=== PATIENT | female | born 1935 | race Caucasian/White ===

== ENCOUNTER 2021-02-10 20:06 | Emergency (ER) | payer MEDICARE ==
[~2021-02-10] VITALS: Ht 157.4 cm; Wt 56.7 kg
[~2021-02-10 20:06] MED LIST: ATIVAN0.5 MG PO; DONNATAL1 TAB PO; HYDRODIURIL25 MG PO; LUMIGAN 2.5 ML2.5 M1 OP; PRAVACHOL20 MG PO; RANITIDINE150 MG PO; TYLENOL PM 5001 CA1 PO
[2021-02-10 20:14] VITALS: BP 193/78
== END 2021-02-10 20:45 | disposition home or self-care (01) ==
LOC: ED 20:06
DX: S51.811A Laceration without foreign body of right forearm, initial encounter (principal); Z88.2 Allergy status to sulfonamides; Z88.6 Allergy status to analgesic agent; Z79.899 Other long term (current) drug therapy; Z90.49 Acquired absence of other specified parts of digestive tract; W22.8XXA Striking against or struck by other objects, initial encounter; Y93.89 Activity, other specified; Y92.098 Other place in other non-institutional residence as the place of occurrence of the external cause; Y99.8 Other external cause status

== ENCOUNTER → 2021-02-13 | Outpatient (CLI) | payer MEDICARE | LOC: WOUNDCARE 02:14 | PROVIDERS: ATTEND Nurse Practitioner Primary Care | DX: S41.111A Laceration without foreign body of right upper arm, initial encounter (principal); I10 Essential (primary) hypertension; E78.5 Hyperlipidemia, unspecified; K21.9 Gastro-esophageal reflux disease without esophagitis; R58 Hemorrhage, not elsewhere classified; G47.00 Insomnia, unspecified; Z90.49 Acquired absence of other specified parts of digestive tract; Z98.41 Cataract extraction status, right eye; X58.XXXA Exposure to other specified factors, initial encounter; Y93.89 Activity, other specified; Y92.89 Other specified places as the place of occurrence of the external cause; Y99.8 Other external cause status ==

== ENCOUNTER → 2021-02-20 | Outpatient (CLI) | payer MEDICARE | LOC: WOUNDCARE 00:45 | PROVIDERS: ATTEND Nurse Practitioner | DX: S51.811D Laceration without foreign body of right forearm, subsequent encounter (principal); S41.111D Laceration without foreign body of right upper arm, subsequent encounter; I10 Essential (primary) hypertension; E78.5 Hyperlipidemia, unspecified; K21.9 Gastro-esophageal reflux disease without esophagitis; R58 Hemorrhage, not elsewhere classified; G47.00 Insomnia, unspecified; Z90.49 Acquired absence of other specified parts of digestive tract; Z98.41 Cataract extraction status, right eye; X58.XXXD Exposure to other specified factors, subsequent encounter ==

== ENCOUNTER → 2021-02-28 | Outpatient (CLI) | payer MEDICARE | LOC: WOUNDCARE 00:39 | PROVIDERS: ATTEND Nurse Practitioner | DX: S51.811D Laceration without foreign body of right forearm, subsequent encounter (principal); S41.111D Laceration without foreign body of right upper arm, subsequent encounter; I10 Essential (primary) hypertension; E78.5 Hyperlipidemia, unspecified; K21.9 Gastro-esophageal reflux disease without esophagitis; R58 Hemorrhage, not elsewhere classified; G47.00 Insomnia, unspecified; Z90.49 Acquired absence of other specified parts of digestive tract; Z98.41 Cataract extraction status, right eye; X58.XXXD Exposure to other specified factors, subsequent encounter ==